=== PATIENT | male | born 1985 | race Caucasian/White ===

== ENCOUNTER 2019-03-06 07:41 | Day surgery (SDC) | payer BC, OTHER ==
[~2019-03-06 07:41] MED LIST: Lactated Ringers 1,000 ML IV SCH
--- NOTE | 2019-03-06 08:36 | PCM.PREANE ---
Preanesthetic Assessment - Anesthesia/Transfusion/Family Hx Anesthesia History: Prior Anesthesia Without Reaction (colonoscopy) Family History of Anesthesia Reaction: No Transfusion History: No Prior Transfusion(s) - Review of Systems General: No Symptoms Pulmonary: No Symptoms Cardiovascular: No Symptoms Gastrointestinal: No Symptoms Neurological: No Symptoms Other: Reports: None - Physical Assessment NPO Status Date: 03/05/19 Vital Signs: Last Vital Signs Temp 97.3 F 03/06/19 08:10 Pulse 57 L 03/06/19 08:10 Resp 16 03/06/19 08:10 BP 105/66 03/06/19 08:10 Pulse Ox 98 03/06/19 08:10 Height: 5 ft 10 in Weight: 85.275 kg Airway Class: Mallampati = 2 Dentition: Reports: Normal Dentition ROM/Head Extension: Full Lungs: Clear to Auscultation, Normal Respiratory Effort Cardiovascular: Regular Rate, Regular Rhythm - Allergies Allergies/Adverse Reactions: Allergies Allergy/AdvReac Type Severity Reaction Status Date / Time amoxicillin Allergy Stomach Verified 03/02/19 09:40 Upset - Blood Blood Available: No - Acknowledgements Anesthesia Type Planned: General Anesthesia Pt an Appropriate Candidate for the Planned Anesthesia: Yes Alternatives and Risks of Anesthesia Discussed w Pt/Guardian: Yes Pt/Guardian Understands and Agrees with Anesthesia Plan: Yes Additional Comments: PMH: depression PLAN: if lateral- ga/lma, if prone- get PreAnesthesia Questionnaire HEENT History: Reports: Other (See Below) Other HEENT History: wears glasses Cardiovascular History: Reports: None Respiratory History: Reports: None Gastrointestinal History: Reports: None Genitourinary History: Reports: None Musculoskeletal History: Reports: None Neurological History: Reports: Migraines Psychiatric History: Reports: Depression Endocrine/Metabolic History: Reports: None Hematologic History: Reports: None Immunologic History: Reports: None Oncologic (Cancer) History: Reports: None Dermatologic History: Reports: None - Past Surgical History Head Surgeries/Procedures: Reports: None HEENT Surgical History: Reports: None Cardiovascular Surgical History: Reports: None Respiratory Surgical History: Reports: None GI Surgical History: Reports: Colonoscopy Male Surgical History: Reports: None Endocrine Surgical History: Reports: None Neurological Surgical History: Reports: None Musculoskeletal Surgical History: Reports: None Oncologic Surgical History: Reports: None Dermatological Surgical History: Reports: None - SUBSTANCE USE Smoking Status *Q: Never Smoker - HOME MEDS Home Medications: Home Meds Desvenlafaxine Succinate [Pristiq] 50 mg PO DAILY 03/02/19 [History] - CURRENT (IN HOUSE) MEDS Current Meds: Current Medications Lactated Ringer's (Ringers, Lactated) 1,000 mls @ 125 mls/hr IV ASDIRECTED [facility] Last Admin: 03/06/19 08:29 Dose: 125 mls/hr
[2019-03-06] MEDS ORDERED: fentaNYL 100 MCG/2 ML SDV ONE ×2 (09:13→10:49)
[2019-03-06] MEDS ORDERED: Propofol 200 MG/20 ML SDV ONE (09:13)
[2019-03-06] MEDS ORDERED: Midazolam 1 MG/ML 2 ML SDV ONE (09:14)
[2019-03-06] MEDS ORDERED: Ondansetron 4 MG/2 ML SDV ONE (09:18)
[2019-03-06] MEDS ORDERED: Lidocaine 1% 20 ML MDV ONE (09:52)
[2019-03-06] MEDS ORDERED: Bupivacaine 0.5% 10 ML SDV ONE (09:52)
[2019-03-06] MEDS ORDERED: Dexamethasone 4 MG/ML 5 ML MDV ONE (10:11)
[2019-03-06] MEDS ORDERED: 50% Dextrose in Water 50 ML Syringe IVPUSH PRN (10:56)
[2019-03-06] MEDS ORDERED: Albuterol 0.083% 2.5 MG/3 ML Neb Soln NEB PRN (10:56)
[2019-03-06] MEDS ORDERED: Naloxone 0.4 MG/ML Syringe IVPUSH PRN (10:56)
[2019-03-06] MEDS ORDERED: EPINEPHrine 1:10,000 1 MG/10 ML Syringe IVPUSH PRN (10:56)
[2019-03-06] MEDS ORDERED: Atropine 0.1 MG/ML 10 ML Syringe IVPUSH PRN ×2 (10:56)
[2019-03-06] MEDS ORDERED: fentaNYL 100 MCG/2 ML SDV IVPUSH PRN (10:56)
--- NOTE | 2019-03-06 11:29 | PCM.OPNOTE ---
- General Post-Op/Procedure Note Date of Surgery/Procedure: 03/06/19 Operative Procedure(s): Excision 2 cm x 3 cm right posterior neck mass Pre Op Diagnosis: Symptomatic right posterior neck mass Post-Op Diagnosis: Same Anesthesia Technique: General ET Tube (ASA II) Primary Surgeon: Esequiel Ramirez Perianesthesia Manager: Ce Key Fluid Replacement, Intraop: 800 EBL in mLs: 5 Condition: Good Free Text/Narrative:: DICTATION 164483 CPT CODE 44874
--- NOTE | 2019-03-06 12:05 | PCM.POSTAN ---
POST ANESTHESIA ASSESSMENT - MENTAL STATUS Mental Status: Alert, Oriented - VITAL SIGNS Vital Signs: Last Vital Signs Temp 97.9 F 03/06/19 11:14 Pulse 70 03/06/19 11:39 Resp 16 03/06/19 11:39 BP 116/74 03/06/19 11:39 Pulse Ox 99 03/06/19 11:39 - RESPIRATORY Respiratory Status: Respiratory Rate WNL, Airway Patent, O2 Saturation Stable - CARDIOVASCULAR CV Status: Pulse Rate WNL, Blood Pressure Stable - GASTROINTESTINAL GI Status: No Symptoms - POST OP HYDRATION Hydration Status: Adequate & Stable
--- NOTE | 2019-03-06 12:05 | PCM48HPAN ---
Post Anesthesia Note - EVALUATION WITHIN 48HRS OF ANESTHETIC Vital Signs in Normal Range: Yes Patient Participated in Evaluation: Yes Respiratory Function Stable: Yes Airway Patent: Yes Cardiovascular Function Stable: Yes Hydration Status Stable: Yes Pain Control Satisfactory: Yes Nausea and Vomiting Control Satisfactory: Yes Mental Status Recovered: Yes Vital Signs: Last Vital Signs Temp 97.9 F 03/06/19 11:14 Pulse 70 03/06/19 11:39 Resp 16 03/06/19 11:39 BP 116/74 03/06/19 11:39 Pulse Ox 99 03/06/19 11:39
--- NOTE | 2019-03-06 12:16 | OR ---
SURGEON: Esequiel Ramirez M.D. DATE OF PROCEDURE: 03/06/2019 OPERATION PERFORMED: Excision of 2 x 3 cm right posterior neck mass. PRIMARY SURGEON: Esequiel Ramirez MD. CERTIFIED PROFESSIONAL CODER: assistant sales center manager: Dr. Key, PGY2. ANESTHESIA: General endotracheal. PREOPERATIVE DIAGNOSIS: Symptomatic right posterior neck mass. POSTOPERATIVE DIAGNOSIS: Symptomatic right posterior neck mass. ESTIMATED BLOOD LOSS: 5 mL. INTRAOPERATIVE FLUID REPLACEMENT: 800 mL of crystalloid. ASA CLASSIFICATION: II. DESCRIPTION OF PROCEDURE: The patient was taken to the operating room placed on the transfer cart in the supine position. Time-out was called for appropriate identification of the patient and procedure. Following satisfactory attainment of general endotracheal anesthesia, the patient was positioned on the operating table in the prone position. Care was taken to pad all bony prominences with rolls between the shoulders along the chest wall and pillows under his ankles. With that accomplished, the surgical site was prepped with DuraPrep solution. Sterile drapes were applied. Skin incision and surgical site had been marked prior to the patient entering the operating room. The skin was now infiltrated with 0.5% Marcaine solution. A skin incision was made and deepened through the subcutaneous tissue down to the mass which was quite deep. Using a combination of sharp dissection and cautery, the mass was removed in its entirety, although in a piecemeal fashion. The wound was then inspected for hemostasis and bleeding sites were electrocoagulated. The subcutaneous tissue was reapproximated with 3-0 Vicryl. The skin edges were reapproximated with subcuticular 4-0 Monocryl. The incision was Steri-Stripped and dressed with a sterile Tegaderm pad. The patient was now returned to the transfer cart in the supine position. Following emergence from anesthesia and extubation, the patient was taken to recovery room in stable condition. ROBERTO / KELLIE /[id number]
== END 2019-03-06 12:24 | disposition home or self-care (01) ==
LOC: MW.SDS 07:41
PROVIDERS: ATTEND Surgery
DX: R22.1 Localized swelling, mass and lump, neck (principal); F32.9 Major depressive disorder, single episode, unspecified; Z88.0 Allergy status to penicillin; Z79.899 Other long term (current) drug therapy
CPT/HCPCS: 21555; 88304; J0330; J1100; J2001; J2250; J2405; J2704; J3010; J3490; J7120; 00300